=== PATIENT | female | born 1925 | race American Indian/Alaskan Native ===

== ENCOUNTER 2016-04-13 20:34 | Inpatient (IN) | payer MEDICARE ==
--- NOTE | 2016-04-13 21:10 | Emergency Department Report ---
ED Syncope HPI - General Stated Complaint: SYNCOPE Time Seen by Provider: 04/13/16 20:45 Source: patient, family Exam Limitations: no limitations - History of Present Illness Initial Comments: 89 yo female the past medical history hypertension presents to the hospital being a syncopal episode. Patient was sitting on a couch and all of a sudden family member noticed her on the floor. Patient states she had a slight 4/10 frontal headache prior to syncope onset but denies headache at this time. No aggravating or alleviating factors reported. She denies blurred vision, chest pain, shortness of breath, nausea, vomiting, diaphoresis, focal weakness, numbness, or abdominal pain. Patient's physician is located in [facility] and she travels intermittently to see the same physician. Denies previous cardiac history or cardiac workup. - Related Data Allergies/Adverse Reactions: Allergies No Known Allergies Allergy (Unverified 04/13/16 20:43) Home Medications: Ambulatory Orders NIFEdipine XL [Procardia Xl] 60 mg PO QDAY 04/13/16 Valsartan [Diovan] 320 mg PO QDAY 04/13/16 ED Review of Systems ROS: Stated complaint: SYNCOPE Other details as noted in HPI Comment: All other systems reviewed and negative Other: Constitutional: No fevers chills Eyes: No eye pain visual changes ENT: No ear pain or throat pain Neck: Denies pain Respiratory: Denies cough wheezing shortness of breath Cardiovascular: Denies chest pain, palpitations GI: Denies abdominal pain, nausea, vomiting, diarrhea : Denies dysuria, urinary frequency, or urgency Musculoskeletal: Denies back pain, joint swelling Skin: Denies rash, lesions, erythema Neurologic: Denies numbness, weakness Psychiatric: Denies suicidal ideation, hallucinations ED Past Medical Hx - Past Medical History Previous Medical History?: Yes Hx Hypertension: Yes - Surgical History Past Surgical History?: Yes Additional Surgical History: tonsils removed - Social History Smoking Status: Never Smoker - Medications Home Medications: Home Medications Medication Instructions Recorded Confirmed Last Taken Type NIFEdipine XL [Procardia Xl] 60 mg PO QDAY 04/13/16 04/13/16 04/13/16 History Valsartan [Diovan] 320 mg PO QDAY 04/13/16 04/13/16 04/13/16 History ED Physical Exam - General Limitations: No Limitations - Other Other exam information: General: No limitations, patient is alert in no acute distress Head exam: Atraumatic, normocephalic Eyes exam: Normal appearance, extraocular movements intact ENT: Moist mucous membrane, normal oropharynx Neck exam: Normal inspection, full range of motion, no meningismus nontender Respiratory exam: Clear to auscultation bilateral, no wheezes, rales, crackles Cardiovascular: Irregular rhythm, systolic murmur Abdomen: Soft, nondistended, and nontender, with normal bowel sounds, no rebound, or guarding Extremity: Full range of motion normal inspection no deformity, no calf tenderness or edema Back: Normal Inspection, full range of motion, no tenderness Neurologic: Alert, oriented x3, cranial nerves intact, no motor or sensory deficit. Mpvffv-qnxk-wovumj function intact Psychiatric: normal affect, normal mood Skin: Warm, dry, intact ED Course Vital Signs 04/13/16 04/13/16 04/13/16 20:45 20:52 21:45 Temperature 98.5 F Pulse Rate 69 63 Respiratory 18 18 18 Rate Blood Pressure 168/63 Blood Pressure 165/63 [Left] O2 Sat by Pulse 98 98 Oximetry 04/13/16 22:45 Temperature Pulse Rate 70 Respiratory 18 Rate Blood Pressure Blood Pressure 183/66 [Left] O2 Sat by Pulse 96 Oximetry ED Medical Decision Making - Lab Data Result diagrams: 04/13/16 21:04 04/13/16 21:12 Lab Results 04/13/16 04/13/16 04/13/16 Range/Units 21:04 21:04 21:11 WBC 8.0 (4.5-11.0) K/mm3 RBC 4.57 (3.65-5.03) M/mm3 Hgb 12.4 (10.1-14.3) gm/dl Hct 38.3 (30.3-42.9) % MCV 84 (79-97) fl MCH 27 L (28-32) pg MCHC 32 (30-34) % RDW 13.9 (13.2-15.2) % Plt Count 121 L (140-440) K/mm3 Lymph % (Auto) 29.1 (13.4-35.0) % [place] % (Auto) 8.1 H (0.0-7.3) % Eos % (Auto) 3.3 (0.0-4.3) % Baso % (Auto) 1.5 (0.0-1.8) % Lymph # 2.3 (1.2-5.4) K/mm3 [place] # 0.6 (0.0-0.8) K/mm3 Eos # 0.3 (0.0-0.4) K/mm3 Baso # 0.1 (0.0-0.1) K/mm3 Seg Neutrophils % 58.0 (40.0-70.0) % Seg Neutrophils # 4.6 (1.8-7.7) K/mm3 PT (12.2-14.9) Sec. INR (0.87-1.13) APTT (24.2-36.6) Sec. Sodium (137-145) mmol/L Potassium (3.6-5.0) mmol/L Chloride (98-107) mmol/L Carbon Dioxide (22-30) mmol/L Anion Gap mmol/L BUN (7-17) mg/dL Creatinine (0.7-1.2) mg/dL Estimated GFR ml/min BUN/Creatinine Ratio % Glucose (65-100) mg/dL Calcium (8.4-10.2) mg/dL Magnesium 1.8 (1.7-2.3) mg/dL Troponin T (0.00-0.029) ng/mL TSH 4.380 H (0.270-4.200) mlU/mL Free T4 1.32 (0.76-1.46) ng/dL 04/13/16 04/13/16 Range/Units 21:12 21:12 WBC (4.5-11.0) K/mm3 RBC (3.65-5.03) M/mm3 Hgb (10.1-14.3) gm/dl Hct (30.3-42.9) % MCV (79-97) fl MCH (28-32) pg MCHC (30-34) % RDW (13.2-15.2) % Plt Count (140-440) K/mm3 Lymph % (Auto) (13.4-35.0) % [place] % (Auto) (0.0-7.3) % Eos % (Auto) (0.0-4.3) % Baso % (Auto) (0.0-1.8) % Lymph # (1.2-5.4) K/mm3 [place] # (0.0-0.8) K/mm3 Eos # (0.0-0.4) K/mm3 Baso # (0.0-0.1) K/mm3 Seg Neutrophils % (40.0-70.0) % Seg Neutrophils # (1.8-7.7) K/mm3 PT 13.2 (12.2-14.9) Sec. INR 1.01 (0.87-1.13) APTT 24.8 (24.2-36.6) Sec. Sodium 141 (137-145) mmol/L Potassium 3.7 (3.6-5.0) mmol/L Chloride 102.2 (98-107) mmol/L Carbon Dioxide 23 (22-30) mmol/L Anion Gap 20 mmol/L BUN 31 H (7-17) mg/dL Creatinine 1.6 H (0.7-1.2) mg/dL Estimated GFR 37 ml/min BUN/Creatinine Ratio 19.37 % Glucose 198 H (65-100) mg/dL Calcium 9.3 (8.4-10.2) mg/dL Magnesium (1.7-2.3) mg/dL Troponin T 0.028 (0.00-0.029) ng/mL TSH (0.270-4.200) mlU/mL Free T4 (0.76-1.46) ng/dL - EKG Data -: EKG Interpreted by Me (A. fib 67 LVH lateral T wave inversions) - EKG Data When compared to previous EKG there are: previous EKG unavailable - Radiology Data Radiology results: report reviewed CT head: No gross abnormality. Mild to moderate age-related volume loss. Chronic small vessel ischemic disease. 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 EKG reveals new onset or newly diagnosed atrial fibrillation. Plan to admit patient to the hospital for further cardiac workup, monitoring, and evaluation. - Differential Diagnosis arrhythmia, NH, anemia, dehydration, ich Critical Care Time: No Critical care attestation.: If time is entered above; I have spent that time in minutes in the direct care of this critically ill patient, excluding procedure time. ED Disposition Clinical Impression: New onset atrial fibrillation, Renal insufficiency Syncope Qualifiers: Syncope type: unspecified Qualified Code(s): R55 - Syncope and collapse Disposition: OP ADMITTED IP TO THIS HOSP Is pt being admited?: Yes Condition: Stable Time of Disposition: 22:59 (Dr Shipman/hosp)
[2016-04-13 21:21] LABS: Basophils % (Auto) 1.5 % (0.0-1.8); Eosinophils % (Auto) 3.3 % (0.0-4.3); Hematocrit 38.3 % (30.3-42.9); Hemoglobin 12.4 gm/dl (10.1-14.3); Mean Corpuscular HGB Conc 32 % (30-34); Mean Corpuscular Hemoglobin 27 pg (28-32); Mean Corpuscular Volume 84 fl (79-97); Platelet Count 121 K/mm3 (140-440); Red Blood Count 4.57 M/mm3 (3.65-5.03); Red Cell Distribution Width 13.9 % (13.2-15.2)
[2016-04-13 21:30] LABS: INR 1.01 (0.87-1.13)
[2016-04-13 21:31] LABS: Partial Thromboplastin Time 24.8 Sec. (24.2-36.6)
[2016-04-13 21:43] LABS: BUN/Creatinine Ratio 19.37; Calcium 9.3 mg/dL (8.4-10.2); Chloride 102.2 mmol/L (98-107); Potassium 3.7 mmol/L (3.6-5.0)
--- NOTE | 2016-04-13 21:55 | Cat Scan Report ---
FINAL REPORT EXAM: CT HEAD/BRAIN WO CON HISTORY: syncope COMPARISON: None available. TECHNIQUE: Axial images obtained skull base through vertex. FINDINGS: No acute intracranial hemorrhage, midline shift or pathologic extra axial fluid collection. Age related volume loss with compensatory dilatation of the ventricular system and chronic small vessel ischemic disease. Chronic lacunar infarct left thalamus measuring 6 millimeters. Otherwise, payne-white differentiation preserved. Calvarium grossly intact. Mild mucosal thickening the visualized paranasal sinuses. Visualized mastoid air cells are clear. Prior cataract surgery. IMPRESSION: No grossly acute intracranial abnormality. Mild to moderate age related volume loss and chronic small vessel ischemic disease. Chronic lacunar infarct left thalamus measuring 6 millimeters.
--- NOTE | 2016-04-13 23:47 | History and Physical Report ---
History of Present Illness Date of examination: 04/13/16 History of present illness: 89 year old woman with history of HTN comes to the emergency room because she passed out while sitting on the parent coach. Daughter states that she might have passed out for 5 minutes. she denies dizziness, palpitaions Patient denies chest pain, palpitation, shortness of breath, cough, abdominal pain, hematochezia, dysuria, frequency, focal weakness, dysarthria, fever chills , polydipsia polyuria, hot or cold intolerance, easy bruisability, or rash or bleeding from mucosal membrane, rhinorrhea, epistaxis, earache, tinnitus, blurry vision, eye discharge, anxiety, depression. Other review of systems negative PAST SURGICAL HISTORY: None SOCIAL HISTORY: Denies alcohol, tobacco or drugs FAMILY HISTORY: Hypertension Medications and Allergies Allergies Allergy/AdvReac Type Severity Reaction Status Date / Time No Known Allergies Allergy Unverified 04/13/16 20:43 Home Medications Medication Instructions Recorded Confirmed Last Taken Type NIFEdipine XL [Procardia Xl] 60 mg PO QDAY 04/13/16 04/13/16 04/13/16 History Apixaban [Eliquis] 2.5 mg PO BID #60 tablet 04/15/16 Unknown Rx Famotidine [Pepcid] 20 mg PO BID #60 tablet 04/15/16 Unknown Rx Metoprolol [Lopressor TAB] 25 mg PO BID #60 tablet 04/15/16 Unknown Rx Exam - Constitutional Vitals: Temp Pulse Resp BP Pulse Ox 98.5 F 70 18 183/66 96 04/13/16 20:45 04/13/16 22:45 04/13/16 22:45 04/13/16 22:45 04/13/16 22:45 Results - Labs CBC & Chem 7: 04/14/16 08:18 04/15/16 13:43 Labs: Abnormal lab results 04/13/16 04/13/16 04/13/16 Range/Units 21:04 21:11 21:12 MCH 27 L (28-32) pg Plt Count 121 L (140-440) K/mm3 [place] % (Auto) 8.1 H (0.0-7.3) % BUN 31 H (7-17) mg/dL Creatinine 1.6 H (0.7-1.2) mg/dL Glucose 198 H (65-100) mg/dL TSH 4.380 H (0.270-4.200) mlU/mL - Imaging and Cardiology EKG: image reviewed (afib, 84) CT Scan - head: report reviewed Assessment and Plan New onset Afib Syncope Hypertension rENAL INSUFFICENCY, ?ACUTE VS CHRONIC Thrombocytopenia admit to medicine check cardiac enzymes, thyroid function, d-dimer, echo Consult cardiology, start IV fluids Change antihypertensives to lopressor Dvt prophalaxis with SCD
[2016-04-14] MEDS ORDERED: NACL 0.9% 1000 ML 1,000 ML IV SCH (01:00)
[2016-04-14] MEDS ORDERED: ZOFRAN IV PRN (01:32)
[2016-04-14] MEDS ORDERED: MILK OF MAGNESIA PO PRN (01:32)
[2016-04-14] MEDS ORDERED: DULCOLAX PR PRN (01:32)
[2016-04-14] MEDS ORDERED: TYLENOL PO PRN (01:32)
[2016-04-14 03:04] LABS: Creatine Kinase MB 2.5 ng/mL (0.0-4.0)
[2016-04-14 08:59] LABS: Basophils % (Auto) 0.9 % (0.0-1.8); Eosinophils % (Auto) 2.7 % (0.0-4.3); Hematocrit 36.2 % (30.3-42.9); Hemoglobin 11.6 gm/dl (10.1-14.3); Mean Corpuscular HGB Conc 32 % (30-34); Mean Corpuscular Hemoglobin 27 pg (28-32); Mean Corpuscular Volume 85 fl (79-97); Platelet Count 111 K/mm3 (140-440); Red Blood Count 4.28 M/mm3 (3.65-5.03); Red Cell Distribution Width 14.2 % (13.2-15.2); White Blood Count 8.9 K/mm3 (4.5-11.0)
[2016-04-14 09:10] LABS: BUN/Creatinine Ratio 19.33; Calcium 9.1 mg/dL (8.4-10.2); Chloride 103.6 mmol/L (98-107); Potassium 3.9 mmol/L (3.6-5.0)
[2016-04-14 09:12] LABS: Creatine Kinase MB 2.3 ng/mL (0.0-4.0)
[2016-04-14] MEDS ORDERED: LOPRESSOR PO SCH (10:00)
--- NOTE | 2016-04-14 12:14 | Consultation ---
History of Present Illness Consult date: 04/14/16 Consult reason: atrial fibrillation History of present illness: This is an 89 year old -[place] female presenting after an episode of syncope at home. Patient's was sitting in the living room and states she had some form of chest discomfort but lost consciousness after she slid from the chair with her head drooping to the side she was unresponsive and daughter estimates she might have been unresponsive for up to 5 minutes by the EMS was called to see patient was transferred to the emergency room there was no witnessed seizure activity or incontinence at this time. Past History Past Medical History: hypertension Past Surgical History: No surgical history Social history: lives with family. denies: smoking, alcohol abuse Family history: no significant family history Medications and Allergies Allergies Allergy/AdvReac Type Severity Reaction Status Date / Time No Known Allergies Allergy Unverified 04/13/16 20:43 Home Medications Medication Instructions Recorded Confirmed Last Taken Type NIFEdipine XL [Procardia Xl] 60 mg PO QDAY 04/13/16 04/13/16 04/13/16 History Valsartan [Diovan] 320 mg PO QDAY 04/13/16 04/13/16 04/13/16 History Active Meds: Active Medications Acetaminophen (Tylenol) 650 mg PO Q4H PRN PRN Reason: Pain MILD(1-3)/Fever >100.5/ZHANG Bisacodyl (Dulcolax) 10 mg NH QDAY PRN PRN Reason: Constipation unrelieved by MOM Sodium Chloride (Nacl 0.9% 1000 Ml) 1,000 mls @ 75 mls/hr IV DIRECT FRANCOIS Magnesium Hydroxide (Milk Of Magnesia) 30 ml PO Q4H PRN PRN Reason: Constipation Metoprolol Tartrate (Lopressor) 12.5 mg PO BID FRANCOIS Ondansetron HCl (Zofran) 4 mg IV Q8H PRN PRN Reason: N/V unrelieved by Reglan Review of Systems Constitutional: no weight loss, no weight gain, no anorexia, no fatigue, no weakness Ears, nose, mouth and throat: no ear pain, no dental pain, no mouth pain, no dysphagia, no headache, no vertigo Breasts: deferred Cardiovascular: syncope, no chest pain, no orthopnea, no palpitations, no dyspnea on exertion Respiratory: no cough, no shortness of breath, no dyspnea on exertion Gastrointestinal: no nausea, no vomiting, no melena, no hematochezia Genitourinary Female: no pelvic pain, no flank pain, no dysuria, no incomplete emptying Rectal: no incontinence, no bleeding Musculoskeletal: no neck stiffness, no neck pain Integumentary: no deferred, no rash, no pruritis Neurological: weakness, no head injury, no paralysis, no parathesias Endocrine: no cold intolerance, no heat intolerance, no excessive thirst, no polyuria, no nocturia Physical Examination Vital Signs Temp Pulse Resp BP Pulse Ox 98.5 F 69 18 168/63 98 04/13/16 20:45 04/13/16 20:45 04/13/16 20:45 04/13/16 20:45 04/13/16 20:45 General appearance: no acute distress, well-nourished HEENT: Positive: PERRL, Mucus Membranes Moist Neck: Positive: neck supple, trachea midline Cardiac: Positive: Reg Rate and Rhythm, S1/S2. Negative: Audible Murmur Lungs: Positive: clear to auscultation, Normal Breath Sounds Neuro: Positive: Grossly Intact Abdomen: Positive: Soft, Active Bowel Sounds. Negative: Tender, Distended Female genitourinary: deferred Skin: Positive: Clear Incision: Cardiac Cath Site Musculoskeletal: No Pain, Normal Range of Motion Extremities: Present: normal. Absent: edema Results 04/14/16 08:18 04/14/16 08:18 Cardiac Enzymes 04/14/16 04/14/16 Range/Units 02:37 08:18 CK-MB (CK-2) 2.5 2.3 (0.0-4.0) ng/mL CBC 04/14/16 Range/Units 08:18 WBC 8.9 (4.5-11.0) K/mm3 RBC 4.28 (3.65-5.03) M/mm3 Hgb 11.6 (10.1-14.3) gm/dl Hct 36.2 (30.3-42.9) % Plt Count 111 L (140-440) K/mm3 Lymph # 2.6 (1.2-5.4) K/mm3 [place] # 0.7 (0.0-0.8) K/mm3 Eos # 0.2 (0.0-0.4) K/mm3 Baso # 0.1 (0.0-0.1) K/mm3 Comprehensive Metabolic Panel 04/14/16 Range/Units 08:18 Sodium 142 (137-145) mmol/L Potassium 3.9 (3.6-5.0) mmol/L Chloride 103.6 (98-107) mmol/L Carbon Dioxide 25 (22-30) mmol/L BUN 29 H (7-17) mg/dL Creatinine 1.5 H (0.7-1.2) mg/dL Glucose 124 H (65-100) mg/dL Calcium 9.1 (8.4-10.2) mg/dL EKG interpretations - Telemetry EKG Rhythm: Atrial Fibrillation Assessment and Plan 1. Syncope 2. New onset atrial fibrillation with controlled ventricular 3. Essential hypertension 4. Chronic kidney disease stage III Plan. Patient is stable we will opt in an echocardiogram to assess global and regional LV systolic function. Lexiscan MPI will be done to rule out underlying ischemic coronary artery disease. We will start patient on anticoagulation.
--- NOTE | 2016-04-14 16:17 | Progress Note ---
Assessment and Plan Assessment and plan: New onset Afib, NSR now Syncope, kaya due to paroxysmal Atrial Fib Hypertension KARAN, kaya KARAN on ckd Thrombocytopenia Plan: follow cardiac enzymes, d-dimer, echo she has elevated TSH but normal T4 level cardiology following cont IV fluid, follow renal function continue BP meds, adjust as needed place on lovenox therapeutic dose (dose for renal function) for antocoagulation Stress test tomorrow History Interval history: Patient seen and examined. Medical records and medication list reviewed. No acute event overnight noted by the RN. Patient denies any chest pain or difficulty breathing. Patient is tolerating diet. Discussed plan of care at bedside with patient. Hospitalist Physical - Physical exam Narrative exam: GENERAL: elderly AAF lying on bed appeared to be in no discomfort. HEENT: Normocephalic. Atraumatic. No conjunctival congestion or icterus. Patient has moist mucous membranes. NECK: Supple. Trachea midline. CHEST/LUNGS: Clear to auscultated bilaterally, breathing nonlabored. No wheezes crackles or rhonchi. HEART/CARDIOVASCULAR: Regular in rate and rhythm. S1 and S2 positive. ABDOMEN: Abdomen is soft, nontender. Patient has normal bowel sounds. SKIN: There is no rash. Warm and dry. NEURO: No focal motor deficit. Follows command. MUSCULOSKELETAL: No joint effusion or tenderness. EXTRIMITY: No edema, no cyanosis or clubbing. PSYCH: Cooperative. - Constitutional Vitals: Temp Pulse Resp BP Pulse Ox 98.5 F 67 14 175/83 99 04/14/16 10:00 04/14/16 10:00 04/14/16 10:00 04/14/16 12:17 04/14/16 11:17 General appearance: Present: no acute distress, well-nourished Results - Labs CBC & Chem 7: 04/14/16 08:18 04/14/16 08:18 Labs: Laboratory Last Values WBC 8.9 K/mm3 (4.5-11.0) 04/14/16 08:18 RBC 4.28 M/mm3 (3.65-5.03) 04/14/16 08:18 Hgb 11.6 gm/dl (10.1-14.3) 04/14/16 08:18 Hct 36.2 % (30.3-42.9) 04/14/16 08:18 MCV 85 fl (79-97) 04/14/16 08:18 MCH 27 pg (28-32) L 04/14/16 08:18 MCHC 32 % (30-34) 04/14/16 08:18 RDW 14.2 % (13.2-15.2) 04/14/16 08:18 Plt Count 111 K/mm3 (140-440) L 04/14/16 08:18 Lymph % (Auto) 28.8 % (13.4-35.0) 04/14/16 08:18 [place] % (Auto) 7.7 % (0.0-7.3) H 04/14/16 08:18 Eos % (Auto) 2.7 % (0.0-4.3) 04/14/16 08:18 Baso % (Auto) 0.9 % (0.0-1.8) 04/14/16 08:18 Lymph # 2.6 K/mm3 (1.2-5.4) 04/14/16 08:18 [place] # 0.7 K/mm3 (0.0-0.8) 04/14/16 08:18 Eos # 0.2 K/mm3 (0.0-0.4) 04/14/16 08:18 Baso # 0.1 K/mm3 (0.0-0.1) 04/14/16 08:18 Seg Neutrophils % 59.9 % (40.0-70.0) 04/14/16 08:18 Seg Neutrophils # 5.3 K/mm3 (1.8-7.7) 04/14/16 08:18 PT 13.2 Sec. (12.2-14.9) 04/13/16 21:12 INR 1.01 (0.87-1.13) 04/13/16 21:12 APTT 24.8 Sec. (24.2-36.6) 04/13/16 21:12 Sodium 142 mmol/L (137-145) 04/14/16 08:18 Potassium 3.9 mmol/L (3.6-5.0) 04/14/16 08:18 Chloride 103.6 mmol/L (98-107) 04/14/16 08:18 Carbon Dioxide 25 mmol/L (22-30) 04/14/16 08:18 Anion Gap 17 mmol/L 04/14/16 08:18 BUN 29 mg/dL (7-17) H 04/14/16 08:18 Creatinine 1.5 mg/dL (0.7-1.2) H 04/14/16 08:18 Estimated GFR 40 ml/min 04/14/16 08:18 BUN/Creatinine Ratio 19.33 % 04/14/16 08:18 Glucose 124 mg/dL (65-100) H 04/14/16 08:18 Calcium 9.1 mg/dL (8.4-10.2) 04/14/16 08:18 Magnesium 1.8 mg/dL (1.7-2.3) 04/13/16 21:04 Total Creatine Kinase 84 units/L (30-135) 04/14/16 08:18 CK-MB (CK-2) 2.3 ng/mL (0.0-4.0) 04/14/16 08:18 CK-MB (CK-2) Rel Index 2.7 (0-4) 04/14/16 08:18 Troponin T 0.023 ng/mL (0.00-0.029) 04/14/16 08:18 TSH 4.380 mlU/mL (0.270-4.200) H 04/13/16 21:11 Free T4 1.32 ng/dL (0.76-1.46) 04/13/16 21:11
[2016-04-14] MEDS ORDERED: LOPRESSOR IV SCH (18:00)
[2016-04-14] MEDS: ASPIRIN PO SCH (18:33)
[2016-04-14] MEDS: PROTONIX PO SCH (18:33)
[2016-04-14] MEDS: APRESOLINE IV PRN (21:00)
[2016-04-14] MEDS: LOPRESSOR PO SCH (21:02)
[2016-04-14] MEDS ORDERED: LOVENOX SUB-Q SCH (22:00)
--- NOTE | 2016-04-15 01:16 | Admit Criteria Form ---
Admission Criteria Documentation: ATRIAL FIBRILLATION Clinical Indications for Admission to Inpatient Care (Place 'X' for any and all applicable criteria): Admission indicated for ANY ONE of the following(1)(2)(3)(4)(5) : [ ]I. Myocardial ischemia [ ]II. Dyspnea or hypoxemia [ ]III. Hemodynamic instability [ ]IV. Heart failure (e.g., pulmonary edema) (7) [ ]V. New-onset (less than 48 hours) atrial fibrillation with high risk for causing complications secondary to comorbidities (eg, symptomatic heart failure ) [ ]. Altered mental status [ ]VII. Syncope [ ]VIII. Patient has implantable cardioverter defibrillator that has fired more than once within past 24hr or needs immediate adjustment of settings that cannot be done other than in inpatient setting. (8) [ ]IX. Suspected accessory pathway (e.g., Qhfuo-Bvgedocwd-Glnwm syndrome) on ECG [ ]X. Recent systemic thromboembolism (eg, stroke) [ ]XI. Medication toxicity (e.g., digitalis) causing arrhythmia(9) [ ]XII. Underlying medical condition that necessitates inpatient care (e.g., thyrotoxicosis, pneumonia) (10) [ ]XIII. Continuous ECG monitoring is required for condition causing arrhythmia (e.g., severe hyperkalemia, hypokalemia, acid-base disturbance).(11)(12)(13) [ ]XIV. Initiation of antiarrhythmic drug therapy is needed in patient at high risk of adverse effects as indicated by ANY ONE of the following: [ ]a) Significant structural heart disease (e.g., reduced ejection fraction, congenital heart disease, valvular heart disease) [ ]b) Prolonged QT interval [ ]c) Underlying sinus node or atrioventricular conduction disturbances [ ]d) Need for treatment with antiarrhythmic drugs that have significant proarrhythmic potential (e.g., dofetilide, sotalol, procainamide) [ ]e) Patient whose sinus rhythm has never been observed on ECG [ ]XV. Intolerable symptoms despite optimal outpatient treatment [ ]XVI. Elective or urgent cardioversion that cannot be performed on outpatient basis or during observation care. [A] (Use also Atrial Fibrillation: Observation Care ) as appropriate.(14) [ ]XVII.Contraindications and/or Inappropriate clinical situations for Observational Care in patients with Atrial Fibrillation, when ANY ONE of the following is required: [ ]a) Patient with High risk of cardiac embolism (e.g, patients with previous cardiac embolism, LVEF < 40%, age >75 and patients with prosthetic valve) 18 [ ]b) Patient with Moderate risk including DM patient, CAD and patient aged 65-75 18 [ ]c) Patient with any change in cardiac biomarker especially troponin should be managed as high risk in an inpatient setting 19 [ ]d) Physician judgement irrespective of ECG and other diagnostic findings 20 [ X]XVIII.General contraindications and/or Inappropriate clinical situations for Observational Care in patients with Atrial Fibrillation, when ANY ONE of the following is required: [ ]a) Prediction of prolongation of LOS based on ANY ONE of the following may be considered as a contraindication for observational care 2, 3, 4, 5, 6, 7, 8, 9, 10, 11 [ ]i) Age > 65 yrs. [ ]ii) Patient arriving by ambulance [ ]iii) Patient with high acuity [ ]iv) Patient requiring vital sign monitoring [ ]v) Patient on IV medication [X ]b) Systolic blood pressures 180mmHg 3,12 [ ]c) Patient with altered mental status including delirium and other alteration of consciousness3 [ ]d) Patient whose discharge disposition will be to a correction home or rehabilitation home should not be managed in Emergency Department Observation Unit. CMS rule requires 3 days hospital stay before such placement.3,13 [ ]e) Patient with failure to thrive due to broad array of etiologies 3,16,17 [ ]f) Inability to ambulate 3,14 Extended stay beyond goal length of stay may be needed for (1)(25)(26): [ ]a) Unstable comorbidities [ ]b) Persistently uncontrolled atrial fibrillation or other arrhythmias [ ]c) Acute thromboembolic event (e.g., stroke, limb ischemia) [ ]d) Need for inpatient attainment of full anticoagulation The original [employer] content created by [employer] has been revised. The portions of the content which have been revised are identified through the use of italic text or in bold, and [facility] has neither reviewed nor approved the modified material. All other unmodified content is copyright [employer]. Please see references footnoted in the original [employer] edition 2016 Admission Criteria Met: Yes
[2016-04-15] MEDS: APRESOLINE IV PRN (01:35)
[2016-04-15] MEDS ORDERED: LEXISCAN IV ONE (07:56)
--- NOTE | 2016-04-15 10:47 | Progress Note ---
Assessment and Plan 1. Syncope 2. New onset atrial fibrillation with controlled ventricular 3. Essential hypertension 4. Acute on Chronic kidney disease. Plan. Patient is stable. Lexiscan MPI done today showed normal myocardial perfusion imaging post IV Lexiscan injection. We will start patient on anticoagulation. Subjective Date of service: 04/15/16 Principal diagnosis: Syncope Interval history: Patient feels fine denies any cardiac symptoms. Objective Vital Signs Temp Pulse Pulse Resp BP BP Pulse Ox 04/15/16 05:38 97.6 F 72 18 169/75 92 04/15/16 00:57 98.2 F 68 18 182/79 100 04/14/16 21:00 45 L 04/14/16 20:15 98.2 F 54 L 20 181/83 100 04/14/16 20:05 45 L 04/14/16 18:30 98.4 F 51 L 14 191/81 04/14/16 18:26 191/74 04/14/16 17:00 62 04/14/16 12:17 175/83 04/14/16 11:17 99 - Physical Examination General: Appears Well, No Apparent Distress HEENT: Positive: PERRL, Mucus Membranes Moist Neck: Positive: neck supple, trachea midline. Negative: JVD/HJR Cardiac: Positive: Regular Rate, S1/S2, S4, Systolic Murmur, PMI, Laterally Displaced Lungs: Positive: clear to auscultation, No Wheeze, Rales, Rhonchi Neuro: Positive: Grossly Intact Abdomen: Positive: Unremarkable, Soft, Active Bowel Sounds. Negative: Tender, Distended Skin: Positive: Clear Incision: Cardiac Cath Site Musculoskeletal: No Pain, Normal Range of Motion Extremities: Present: normal. Absent: edema - Imaging and Cardiology EKG: image reviewed (afib, 84)
[2016-04-15] MEDS ORDERED: LOVENOX SUB-Q SCH (11:00)
[2016-04-15] MEDS: PROTONIX PO SCH (11:54)
[2016-04-15] MEDS: LOPRESSOR PO SCH (11:54)
[2016-04-15] MEDS: ASPIRIN PO SCH (11:54)
[2016-04-15 13:50] VITALS: BP 198/95
[2016-04-15 14:36] LABS: BUN/Creatinine Ratio 16.31; Calcium 8.8 mg/dL (8.4-10.2); Chloride 101.1 mmol/L (98-107); Potassium 4.1 mmol/L (3.6-5.0)
--- NOTE | 2016-04-15 17:47 | Discharge Summary ---
[id number] 04/15/16 Attending physician: GREGORIO FLORES Hospitalization Condition: Fair Hospital course: Patient is 89 yo with history of hypertension, presented with syncope. In Emergency dept was found to have new onset afib with controlled ventricular rate. She was admitted, Cardiology was consulted and she was evaluated. Stress test was normal. She had no more syncopal episodes since admitted. Cardiology recommended anticoagulation, and she was discharged home on Eliquis. Syncope likely due to episode of rapid afib. She had elevated Creatinine which is acute kidney injury versus acute on chronic kidney disease. To be followed as an outpatient. Total time spent on discharge, 34 mins. Disposition: DISCHARGED TO HOME OR SELFCARE - Discharge Diagnoses (1) New onset atrial fibrillation Status: Acute (2) Syncope Status: Acute Qualifiers: Syncope type: unspecified Qualified Code(s): R55 - Syncope and collapse Comment: due to atrial fibrillation (3) KARAN (acute kidney injury) Status: Acute Core Measure Documentation - Palliative Care Palliative Care/ Comfort Measures: Not Applicable - Core Measures Any of the following diagnoses?: none Exam - Constitutional Vitals: Temp Pulse Resp BP Pulse Ox 97.3 F L 72 18 198/95 100 04/15/16 13:49 04/15/16 13:49 04/15/16 13:49 04/15/16 13:49 04/15/16 13:49 General appearance: Present: no acute distress - EENT ENT: hearing intact - Respiratory Respiratory: bilateral: CTA - Cardiovascular Rhythm: irregularly irregular Heart Sounds: Present: S1 & S2 - Neurologic Neurologic: other (awake,alert) Plan Activity: no driving until cleared by PCP Diet: low fat, low cholesterol, low salt Additional Instructions: 1.Jenniffer primary care physician in 3-5 days. 2.Follow -up with Dr. De La Rosa in 3-5 days for possible outpatient holter. 3.Check BMP in 1 week. 4.Follow up with Nephrology in 3-5 days. Follow up with: SUDHAKAR MUSTAFA [Other] - 7 Days Prescriptions: Apixaban [Eliquis] 2.5 mg PO BID #60 tablet Famotidine [Pepcid] 20 mg PO BID #60 tablet Metoprolol [Lopressor TAB] 25 mg PO BID #60 tablet
--- NOTE | 2016-04-16 10:26 | Echocardiography Report ---
Transthoracic Echocardiogram Indication: NEW ONSET OF AFIB BP: 169/75 HR: 72 Conclusions *1. LV systolic function lower limits of normal, EF 50%. *2. Mod-severe concentric LVH. Findings Procedure Info: The study quality is fair. Left Ventricle: The left ventricular chamber size is normal. Moderate to severe concentric left ventricular hypertrophy is observed. Septal wall hypertrophy is observed. Global left ventricular systolic function is at the lower limits of normal. The estimated ejection fraction is 50-55%. Left Atrium: The left atrial chamber size is normal. Right Ventricle: The right ventricle wall thickness is mildly increased. The right ventricular cavity size is normal. The right ventricular global systolic function is normal. No pacemaker wire is visualized in the right ventricle. Right Atrium: The right atrial cavity size is normal. No pacemaker wire is visualized in the right atrium. A patent foramen ovale is not demonstrated by color Doppler. Aortic Valve: The aortic valve is trileaflet. The aortic valve leaflets are mildly thickened. Systolic excursion of the aortic valve is normal. There is trace of aortic regurgitation. There is no evidence of aortic stenosis. The peak instantaneous gradient of the aortic valve is 6 mmHg. The aortic valve area, by peak velocities, is calculated at 1.88 cm2. Mitral Valve: The mitral valve leaflets appear myxomatous. The mitral valve leaflets are mildly thickened. There is mild mitral regurgitation. There is no evidence of mitral stenosis. Tricuspid Valve: The tricuspid valve is not well visualized. There is mild to moderate tricuspid regurgitation. The right ventricular systolic pressure is calculated at 25 mmHg. There is evidence of borderline pulmonary hypertension. There is no tricuspid stenosis. Pulmonic Valve: The pulmonic valve appears normal. There is trace pulmonic regurgitation. There is no pulmonic stenosis. Pericardium: A trivial pericardial effusion is visualized. No pleural effusion is present. Aorta: The aorta appears normal. There is no dilatation of the ascending aorta. There is no dilatation of the aortic root. Pulmonary Artery: The main pulmonary artery is not well visualized. Measurements Chambers MM Name Value Normal Range IVSd (MM) 1.88 cm (0.6 - 1.1) LVPWd (MM) 1.51 cm (0.6 - 1.1) IVS:LVPW ratio 1.25 ratio - LVIDd (MM) 3.39 cm (3.7 - 5.6) LVIDs (MM) 2.12 cm (2 - 2.8) LV FS (Teichholz) (MM) 37.5 % - LV FS (cube) (MM) 37.5 % - EF Teichholz (MM) 68.6 % - Ao root diameter (MM) 2.2 cm (2 - 3.7) LA dimension (AP) MM 3.6 cm (1.9 - 4) LA:Ao ratio (MM) 1.64 ratio - AV cusp separation (MM) 1.6 cm (1.5 - 2.6) Chambers 2D Name Value Normal Range IVSd (2D) 1.95 cm (0.6 - 1.1) LVPWd 1.5 cm - LVPWd (2D) 1.47 cm (0.6 - 1.1) IVS:LVPW ratio (2D) 1.33 ratio - LVIDd 2.91 cm - LVIDs 2.1 cm - LVIDd (2D) 2.91 cm (3.7 - 5.6) LVIDs (2D) 2.05 cm (2 - 3.8) LV FS (Teichholz) (2D) 29.6 % - LV FS (cube) (2D) 29.6 % - LV EF (2D) 58 % - EF Teichholz (2D) 58.2 % - LA dimension 3.7 cm - Ao root diameter (2D) 3.1 cm (2 - 3.7) LA dimension (AP) 2D 3.7 cm (1.9 - 4) LA:Ao ratio (2D) 1.19 ratio - Volumes/Mass Name Value Normal Range LA ESV SP 4CH (MOD) 53 ml - LV EDV SP 4CH (MOD) 37 ml - LV ESV SP 4CH (MOD) 13 ml - EF SP 4CH (MOD) 65 % - Diastolic/Systolic Function Name Value Normal Range MV E-wave Vmax 0.9 m/sec - MV deceleration time 278 msec - LV septal e' Vmax 0.06 m/sec - LV lateral e' Vmax 0.1 m/sec - LV E:e' septal ratio 14.5 ratio - LV E:e' lateral ratio 9.3 ratio - Aortic Valve Name Value Normal Range AV Vmax 1.22 m/sec - AV peak gradient 6 mmHg - LVOT diameter 1.7 cm - LVOT Vmax 1.01 m/sec - LVOT peak gradient 4 mmHg - MIHIR (continuity Vmax) 1.88 cm2 - Tricuspid Valve Name Value Normal Range TR Vmax 2.36 m/sec - TR peak gradient 22 mmHg - RAP 3 mmHg - RVSP 25 mmHg - Pulmonic Valve/Qp:Qs Name Value Normal Range PV Vmax 0.8 m/sec - PV peak gradient 3 mmHg - WV end-diastolic Vmax 1.13 m/sec - PV acceleration time 81 msec -
--- NOTE | 2016-04-16 10:30 | Treadmill Report ---
THALLIUM STRESS TEST LEFT VENTRICLE: Left ventricular chamber size is within normal. Perfusion study demonstrates homogeneous uptake of the tracer in all segments. No significant defects identified. Gated analysis is not available. CONCLUSION: Normal myocardial perfusion study. [facility]# [id number] CA/NTS
--- NOTE | 2016-04-22 08:47 | Query- Renal Failure ---
Jose Antonio Srinivasan___Curt Date: 04/22/16 [employer] Frier/CDS:__Gómez / Nathan Phone#:___[phone] Exercise your independent professional judgment when responding to query. Questions asked do not imply a particular answer is desired or expected. We greatly appreciate your clarification on this issue. Clinical Documentation States: 89 year old female was admitted on 04/13/16. The patient was brought to the ER due to syncope, and has a history of hypertension. The progress note (04/15/16) states " Acute on chronic kidney disease" The discharge summary states " Renal insufficency: Acute" Clinical Findings Show: 04/13/16 04/15/16 Creatinine 1.6 1.9 Please clarify if you mean: Acute Renal Failure with or due to: [x ] Tubular Necrosis [ ] Medullary Necrosis [ ] Vasomotor Nephropathy [ ] Shock Kidney [ ] Tubular Nephrosis [ ] Renal Tubular Stasis [ ] Cortical Necrosis [ ] Acute Renal Failure (unspecified) [ ] Lower Tubular Nephrosis [ ] Other: [ ] Not Applicable Present on Admission: [x ] Yes (Y) [ ] Clinically undeterminable (W) [ ] No (N) Please also document response in your Progress Notes and/or Discharge Summary and indicate if the condition was present on admission. JUAN
== END 2016-04-15 18:36 | disposition home or self-care (01) | DRG 308 ==
LOC: ED 20:34 → 4A 23:25
PROVIDERS: ADMIT Internal Medicine; ATTEND Internal Medicine
DX: I48.91 Unspecified atrial fibrillation (principal); N17.0 Acute kidney failure with tubular necrosis; I12.9 Hypertensive chronic kidney disease with stage 1 through stage 4 chronic kidney disease, or unspecified chronic kidney disease; N18.3 Chronic kidney disease, stage 3 (moderate); D69.6 Thrombocytopenia, unspecified; Z98.890 Other specified postprocedural states; Z79.899 Other long term (current) drug therapy; Z82.49 Family history of ischemic heart disease and other diseases of the circulatory system; Z79.01 Long term (current) use of anticoagulants
CPT/HCPCS: 36415; 70450; 78452; 80048; 82550; 82553; 83735; 84436; 84439; 84443; 84484; 85025; 85610; 85730; 93005; 93010; 93017; 93306; A9502; J0360; J1650; J2785; J7030